=== PATIENT | female | born 2000 | race Caucasian/White ===

== ENCOUNTER → 2019-01-16 | Outpatient (CLI) | payer OTHER ==
--- NOTE | 2019-01-16 15:46 | REP ---
Sacrum and coccyx four views History: Pain There is no acute fracture or subluxation. The intervertebral discs are normal in height. Impression: There is no acute fracture or subluxation. Electronically Signed by Alireza Mancilla MD 01/16/2019 03:37 P
== END ==
LOC: M LRY 15:09
PROVIDERS: ATTEND Physician Assistant
DX: S39.92XA Unspecified injury of lower back, initial encounter (principal); X58.XXXA Exposure to other specified factors, initial encounter; Y92.89 Other specified places as the place of occurrence of the external cause